=== PATIENT | female | born 1995 | race Caucasian/White ===

== ENCOUNTER 2017-03-06 12:34 | Emergency (ER) | payer OTHER ==
[2017-03-06] MEDS ORDERED: BIRTH CONTROL (12:35)
== END 2017-03-06 14:00 | disposition home or self-care (01) ==
LOC: SED 12:34
DX: H10.021 Other mucopurulent conjunctivitis, right eye (principal); R03.0 Elevated blood-pressure reading, without diagnosis of hypertension
CPT/HCPCS: 99283